=== PATIENT | female | born 2000 | race Caucasian/White ===

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

== ENCOUNTER 2018-03-30 20:07 | Emergency (ER) | payer OTHER ==
[2018-03-30] MEDS ORDERED: SODIUM CHLORIDE 0.9% 1000ML 1,000 ML IVS ONE (20:18)
[2018-03-30] MEDS ORDERED: ACTIVATED CHARCOAL PELLETS 25 GM BTTL PO ONE (20:20)
--- NOTE | 2018-03-30 20:23 | ED.PDOC ---
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 Pt denies suicidal intent or ideation Timing/Duration: 1 hour Severity: moderate Improving Factors: nothing Worsening Factors: nothing Associated Symptoms: malaise Home Medications: Ambulatory Orders Quetiapine Fumarate 25 mg PO BID 03/30/18 Venlafaxine HCl [Venlafaxine HCl ER] 150 mg PO DAILY 03/30/18 Review of Systems - Review of Systems Constitutional: States: no symptoms reported, weakness EENTM: States: no symptoms reported Respiratory: Denies: cough, short of breath Cardiology: Denies: chest pain, syncope Gastrointestinal/Abdominal: Denies: abdominal pain, nausea, vomiting Genitourinary: States: no symptoms reported Musculoskeletal: States: no symptoms reported Skin: States: no symptoms reported Neurological: States: no symptoms reported Endocrine: States: no symptoms reported Hematologic/Lymphatic: States: no symptoms reported Family Medical History - Family History Mother Family History: Unknown Living Status: Still Living Physical Exam - Physical Exam General Appearance: Alert, Lethargic Eye Exam: bilateral normal Ears, Nose, Throat: hearing grossly normal Neck: non-tender, full range of motion Respiratory: lungs clear, normal breath sounds, no respiratory distress Cardiovascular/Chest: normal peripheral pulses, tachycardia Gastrointestinal/Abdominal: normal bowel sounds, non tender, soft Neurologic: alert Skin Exam: normal color, warm/dry Lymphatic: no adenopathy Progress - EKG/XRAY/CT EKG: Sinus, Tachy Comments: Rate 107, DE 138, QRS 74 Departure - Departure Clinical Impression: Overdose Qualifiers: Encounter type: initial encounter Injury intent: undetermined intent Qualified Code(s): T50.904A - Poisoning by unspecified drugs, medicaments and biological substances, undetermined, initial encounter Disposition: Discharge to Home or Self Care Departure Forms: ED Discharge - Pt. Copy, Patient Portal Self Enrollment Instructions: DI for Drug Overdose in Adults Referrals: Nader Argueta MD [Primary Care Provider] - 1-2 Weeks Home Medications: Ambulatory Orders Quetiapine Fumarate 25 mg PO BID 03/30/18 Venlafaxine HCl [Venlafaxine HCl ER] 150 mg PO DAILY 03/30/18
--- NOTE | 2018-03-30 21:02 | RAD ---
EXAM DESCRIPTION: Chest,1 View CLINICAL HISTORY: 17 years Female, ams Comparison: None FINDINGS: Single AP view of the chest Cardiomediastinal silhouette is within normal limits. No focal lung consolidation. No pleural effusion. No pneumothorax. No acute osseous finding. IMPRESSION: No acute chest finding. Electronically signed by: Donna Schaefer MD 03/30/2018 9:00 PM [employer]
[2018-03-30 23:38] VITALS: BP 112/64; TEMP 97; O2SAT 99
== END 2018-03-30 23:38 | disposition home or self-care (01) ==
LOC: ER 20:07
DX: T43.594A Poisoning by other antipsychotics and neuroleptics, undetermined, initial encounter (principal); Z79.899 Other long term (current) drug therapy
CPT/HCPCS: 36415; 71045; 80053; 80307; 81001; 81025; 85025; 93005; J7030

== ENCOUNTER 2018-06-06 18:09 | Emergency (ER) | payer OTHER ==
[2018-06-06] MEDS ORDERED: SULFA/TRIMETH 800/160 (DS) TAB 1 EA TAB PO ONE (19:22)
--- NOTE | 2018-06-06 19:24 | ED.PDOC ---
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 This occurred just prior to arrival. The slicer shaved off the very tip of the finger. It did not take any of the nail. It did not extend down to the bone. He has been bleeding fairly vigorously however. No other injuries. Timing/Duration: momentarily Severity: mild Improving Factors: nothing Worsening Factors: nothing Associated Symptoms: denies symptoms Home Medications: Ambulatory Orders Quetiapine Fumarate 25 mg PO BID 03/30/18 Venlafaxine HCl [Venlafaxine HCl ER] 150 mg PO DAILY 03/30/18 Review of Systems - Review of Systems Constitutional: States: no symptoms reported EENTM: States: no symptoms reported Respiratory: States: no symptoms reported Cardiology: States: no symptoms reported Gastrointestinal/Abdominal: States: no symptoms reported Genitourinary: States: no symptoms reported Musculoskeletal: States: no symptoms reported Skin: States: see HPI Neurological: States: no symptoms reported Endocrine: States: no symptoms reported All other Systems: No Change from Baseline Past Medical History (General) - Patient Medical History Hx Seizures: No Hx Stroke: No Hx Dementia: No Hx Asthma: No Hx of COPD: No Hx Cardiac Disorders: No Hx Congestive Heart Failure: No Hx Pacemaker: No Hx Hypertension: No Hx Thyroid Disease: No Hx Diabetes: No Hx Gastroesophageal Reflux: No Hx Renal Disease: No Hx of HIV: No Hx MRSA: No - Vaccination History Hx Tetanus, Diphtheria Vaccination: Yes Hx Influenza Vaccination: Yes - 2018 Hx Pneumococcal Vaccination: No Immunizations Up to Date: Yes - Social History Hx Tobacco Use: No Hx Alcohol Use: No - Female History Patient : No - Triage Comment ED Triage Comment: Patient states she cut her right index finger on 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 Family Medical History - Family History Mother Family History: Unknown Living Status: Still Living Physical Exam - Physical Exam General Appearance: Alert, Comfortable, No apparent distress Eye Exam: bilateral normal Ears, Nose, Throat: hearing grossly normal Neck: full range of motion Respiratory: no respiratory distress, no accessory muscle use Cardiovascular/Chest: normal peripheral pulses, no edema Peripheral Pulses: radial,right: 2+, radial,left: 2+ Rectal Exam: deferred Extremity: normal range of motion, no pedal edema, normal capillary refill, other - no evidence of any tendon injury to the right hand. Laceration does not extend down to the bone. Neurologic: form stripper II-XII nml as tested, alert, normal mood/affect, oriented x 3 Skin Exam: normal color - as above the patient shaved off the tip of her second digit of her right hand. There is a very small amount of fat exposed. There is no layer to sew back down. Comments: Vital Signs - 24 hr 06/06/18 06/06/18 18:10 18:32 Temperature 98.4 F Pulse Rate [ 87 monitor] Respiratory 18 18 Rate Blood Pressure 130/76 [Left Arm] O2 Sat by Pulse 96 Oximetry Progress - Progress Progress: 06/06/18 19:25 the patient's a 17-year-old female presenting to the emergency room secondary to laceration to the tip of the second finger of her right hand that occurred at work. The patient is irrigated the wound for 3 minutes with water. Silver nitrate is used for hemostasis followed by small pressure dressing. There is actually nothing to sew at this point. The wound will have to heal by secondary intention. at work she does need to apply Neosporin and a Band-Aid and of course use gloves at work. She was given 1 dose of Bactrim here for prophylactic measures only. she will likely have decreased sensation at the tip of that finger from now on. She does need to be aware of that. ER warnings were given. Departure - Departure Clinical Impression: Laceration of finger Qualifiers: Encounter type: initial encounter Finger: index finger Damage to nail status: without damage Foreign body presence: without foreign body Laterality: right Qualified Code(s): S61.210A - Laceration without foreign body of right index finger without damage to nail, initial encounter Disposition: Discharge to Home or Self Care Condition: Fair Departure Forms: ED Discharge - Pt. Copy, Patient Portal Self Enrollment Instructions: DI for Laceration Repair, DI for Laceration Repair -- Simple Diet: regular diet Activity: increase activity as tolerated Referrals: Nader Argueta MD [Primary Care Provider] - 1-2 Weeks Home Medications: Ambulatory Orders Quetiapine Fumarate 25 mg PO BID 12/28/18 Venlafaxine HCl [Venlafaxine HCl ER] 150 mg PO DAILY 03/30/18 Additional Instructions: the patient's a 17-year-old female presenting to the emergency room secondary to laceration to the tip of the second finger of her right hand that occurred at work. The patient is irrigated the wound for 3 minutes with water. Silver nitrate is used for hemostasis followed by small pressure dressing. There is actually nothing to sew at this point. The wound will have to heal by secondary intention. at work she does need to apply Neosporin and a Band-Aid and of course use gloves at work. She was given 1 dose of Bactrim here for prophylactic measures only. she will likely have decreased sensation at the tip of that finger from now on. She does need to be aware of that. ER warnings were given.
[2018-06-06 19:46] VITALS: BP 123/82; TEMP 97.9; O2SAT 99
== END 2018-06-06 19:46 | disposition home or self-care (01) ==
LOC: ER 18:09
DX: S61.210A Laceration without foreign body of right index finger without damage to nail, initial encounter (principal); W31.82XA Contact with other commercial machinery, initial encounter; Y99.0 Civilian activity done for income or pay; Y92.69 Other specified industrial and construction area as the place of occurrence of the external cause